=== PATIENT | female | born 1985 | race Caucasian/White ===

== ENCOUNTER 2017-07-12 00:02 | Inpatient (IN) | payer OTHER ==
[~2017-07-12 00:02] MED LIST: Acetaminophen 325 MG Tab PO PRN; Carboprost Tromethamine 250 MCG/1 ML Amp IM PRN; Lactated Ringers 500 ML IV ONE; Lidocaine 1% 30 ML SDV INJECT PRN; Methylergonovine 0.2 MG/1 ML Amp IM PRN; Misoprostol 400 MCG (4 X 100 MCG TAB) RECTAL PRN; Nalbuphine 20 MG/1 ML Amp IM PRN; Nalbuphine 20 MG/1 ML Amp IVPUSH PRN; Ondansetron 4 MG/2 ML SDV IV PRN; Oxytocin/Normal Saline 30 UNIT/500 ML BAG IV SCH; Sodium Chloride 0.9% 10 ML Syringe FLUSH PRN; fentaNYL 100 MCG/2 ML SDV IVPUSH PRN
[2017-07-12] MEDS: Misoprostol 25 MCG (1/4 of 100 MCG) Tab VAG PRN ×2 (01:01→05:12)
[2017-07-12] MEDS: Lactated Ringers 1,000 ML IV SCH ×4 (07:45→14:56)
--- NOTE | 2017-07-12 11:37 | PCM.LDHP ---
L&D History of Present Illness - General Date of Service: 07/12/17 Admit Problem/Dx: Patient Status Order with Admit Dx/Problem 07/12/17 00:00 Patient Status [ADT] Routine Admission Diagnosis/Problem Admission Diagnosis/Problem - History of Present Illness Introduction:: 32-year-old at 39w0d presented for elective induction at midnight. Patient has been feeling well. Baby has been active. No vaginal bleeding or leaking of fluid. No new headaches or vision changes. Patient received 2 doses of cytotec overnight with the last dose given at 515. Patient has felt some cramping but is not yet having painful contractions. has been complicated by gallstones, impaired glucose tolerance ( passed 3 hour GTT) and anemia. 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: , Other (See Below) - Past Surgical History HEENT Surgical History: Reports: Tonsillectomy, Other (See Below) Other HEENT Surgeries/Procedures: wisdom teeth removed Female Surgical History: Reports: D&C, Other (See Below) Other Female Surgeries/Procedures: due to excessive bleeding with periods Social & Family History - Family History Family Medical History: Noncontributory Hematologic: Reports: Other (See Below) (Blood clots (maternal grandfather)) Oncologic: Reports: Breast (Paternal grandmother) Other Family History: Father has sarcoidosis - Tobacco Use Smoking Status *Q: Never Smoker Years of Tobacco use: 13 Packs/Tins Daily: 0.5 Second Hand Smoke Exposure: No - Caffeine Use Caffeine Use: Reports: Coffee, Soda - Recreational Drug Use Recreational Drug Use: No - Sexual History Sexual History: Reports: Sexually Active, Single Partner - Living Situation & Occupation Living situation: Reports: Occupation: Employed H&P Review of Systems - Review of Systems: Review Of Systems: ROS reveals no pertinent complaints other than HPI. L&D Exam - Exam Exam: See Below - Vital Signs Vital Signs: Last Vital Signs Temp 36.7 C 07/12/17 10:03 Pulse 50 L 07/12/17 10:05 Resp 16 07/12/17 10:05 BP 116/68 07/12/17 10:05 Pulse Ox Weight: 107.955 kg - OB Specific Contraction Duration (sec): 40-60 Contraction Frequency (min): 2-2.5 Contraction Intensity: Mild Movement: Active Heart Tones: Present Heart Tones per Min: 135 Heart Rate (FHR) Variability: Moderate (6-25 bmp) Presentation: Vertex - Tovar Score Tovar Score Cervix Position: Midposition Tovar Score Consistency: Soft Tovar Score Effacement: 51-70% Tovar Score Dilation: 1-2 cm Tovar Score 's Station: -1 ,0 Tovar Score Total: 8 - Exam HEENT: Mucosa Moist & [place], Pupils Reactive Lungs: Clear to Auscultation, Normal Respiratory Effort Cardiovascular: Regular Rate, Regular Rhythm. No: Systolic Murmur, Diastolic Murmur Genitourinary: Normal external exam Extremities: No Pedal Edema Skin: Warm, Dry, Intact - Patient Data Lab Results Last 24 hrs: Laboratory Results - last 24 hr 07/12/17 Range/Units 00:25 WBC 11.4 H (5.0-10.0) 10^3/uL RBC 3.94 L (4.2-5.4) 10^6/uL Hgb 11.1 L (12.0-16.0) g/dL Hct 33.9 L (37.0-47.0) % MCV 86.0 (80-100) fL MCH 28.2 (27.0-34.0) pg MCHC 32.7 L (33.0-35.0) g/dL Plt Count 218 (150-450) 10^3/uL Result Diagrams: 07/12/17 00:25 - Problem List (1) care in third trimester SNOMED Code(s): 808698253, 70715875, 811505528, 808412121 ICD Code: Z34.93 - ENCNTR FOR SUPRVSN OF NORMAL PREG, UNSP, THIRD TRIMESTER Status: Acute Current Visit: Yes (2) Rh negative status during in third trimester SNOMED Code(s): 658625431 ICD Code: O09.893 - SUPERVISION OF OTHER HIGH RISK PREGNANCIES, THIRD TRIMESTER; Z67.91 - UNSPECIFIED BLOOD TYPE, RH NEGATIVE Status: Acute Current Visit: Yes (3) Anemia affecting in third trimester SNOMED Code(s): 95939535 ICD Code: O99.013 - ANEMIA COMPLICATING , THIRD TRIMESTER Status: Acute Current Visit: Yes (4) Impaired glucose in , antepartum SNOMED Code(s): 250947212 ICD Code: O99.810 - ABNORMAL GLUCOSE COMPLICATING Status: Acute Current Visit: Yes (5) Abdominal pain affecting SNOMED Code(s): 962864526 ICD Code: O26.899 - OTH RELATED CONDITIONS, UNSPECIFIED TRIMESTER; R10.9 - UNSPECIFIED ABDOMINAL PAIN Status: Acute Current Visit: Yes Problem List Initiated/Reviewed/Updated: Yes Orders Last 24hrs: Active Orders 24 hr Category Date Time Status Patient Status [ADT] Routine ADT 07/12/17 00:00 Active Communication Order [RC] ASDIRECTED Care 07/12/17 00:00 Active Communication Order [RC] ASDIRECTED Care 07/12/17 00:00 Active Communication Order [RC] ASDIRECTED Care 07/12/17 00:00 Active Communication Order [RC] ASDIRECTED Care 07/12/17 00:00 Active Communication Order [RC] ASDIRECTED Care 07/12/17 00:00 Active Communication Order [RC] ASDIRECTED Care 07/12/17 00:00 Active Notify Provider Vital Signs OB [RC] ASDIRECTED Care 07/12/17 00:00 Active Notify Provider [RC] PRN Care 07/12/17 00:00 Active Notify Provider [RC] PRN Care 07/12/17 00:00 Active Notify Provider [RC] PRN Care 07/12/17 00:00 Active Notify Provider [RC] STAT Care 07/12/17 00:00 Active Pump Management, Intrathecal [RC] ASDIRECTED Care 07/12/17 00:00 Active Up ad Adriane [RC] ASDIRECTED Care 07/12/17 00:00 Active Vaginal Exam [RC] PRN Care 07/12/17 00:00 Active Vital Signs [RC] 08,20 Care 07/12/17 00:00 Active Clear Liquid Diet [DIET] Diet 07/12/17 Breakfast Active Acetaminophen [Tylenol] Med 07/12/17 00:00 Active 650 mg PO Q4H PRN Carboprost Tromethamine [Hemabate DS] Med 07/12/17 00:00 Active 250 mcg IM ASDIRECTED PRN Lactated Ringers [Ringers, Lactated] 1,000 ml Med 07/12/17 00:00 Active IV ASDIRECTED Lidocaine 1% [Xylocaine-MPF 1%] Med 07/12/17 00:00 Active 10 ml INJECT ASDIRECTED PRN Methylergonovine [Methergine] Med 07/12/17 00:00 Active 0.2 mg IM ASDIRECTED PRN Misoprostol [Cytotec] Med 07/12/17 00:00 Active 25 mcg VAG Q4H PRN Misoprostol [Cytotec] Med 07/12/17 00:00 Active 800 mcg RECTAL ASDIRECTED PRN Nalbuphine [Nubain] Med 07/12/17 00:00 Active 10 mg IVPUSH Q3H PRN Nalbuphine [Nubain] Med 07/12/17 00:00 Active 20 mg IM Q3H PRN Ondansetron [Zofran] Med 07/12/17 00:00 Active 4 mg IV Q4H PRN Oxytocin/Normal Saline [Pitocin in NS 30 UNIT/500 ML] Med 07/12/17 00:00 Active 30 unit in 500 ml IV TITRATE Sodium Chloride 0.9% [Saline Flush] Med 07/12/17 00:00 Active 10 ml FLUSH ASDIRECTED PRN fentaNYL [Sublimaze] Med 07/12/17 00:00 Active 50 mcg IVPUSH Q1H PRN Saline Lock Insert [OM.PC] Routine Oth 07/12/17 00:00 Ordered Resuscitation Status Routine Resus Stat 07/11/17 22:46 Ordered Medication Orders Acetaminophen (Tylenol) 650 mg PO Q4H PRN PRN Reason: Pain (Mild 1-3) and fever Carboprost Tromethamine (Hemabate Ds) 250 mcg IM ASDIRECTED PRN PRN Reason: HEMORRHAGE Fentanyl (Sublimaze) 50 mcg IVPUSH Q1H PRN PRN Reason: Pain (moderate 4-6) Lactated Ringer's (Ringers, Lactated) 1,000 mls @ 125 mls/hr IV ASDIRECTED MICHAEL Last Admin: 07/12/17 07:45 Dose: 125 mls/hr Oxytocin/Sodium Chloride (Pitocin In Ns 30 Unit/500 Ml) 30 unit in 500 mls @ 2 mls/hr IV TITRATE MICHAEL; 2 MUNITS/MIN PRN Reason: Protocol Last Titration: 07/12/17 10:57 Dose: 4 munits/min, 4 mls/hr Admin: 07/12/17 10:25 Dose: 2 munits/min, 2 mls/hr Lidocaine HCl (Xylocaine-Mpf 1%) 10 ml INJECT ASDIRECTED PRN PRN Reason: Perineal Repair Methylergonovine Maleate (Methergine) 0.2 mg IM ASDIRECTED PRN PRN Reason: Hemorrhage Misoprostol (Cytotec) 800 mcg RECTAL ASDIRECTED PRN PRN Reason: Hemorrhage Misoprostol (Cytotec) 25 mcg VAG Q4H PRN PRN Reason: cervical ripening Last Admin: 07/12/17 05:12 Dose: 25 mcg Admin: 07/12/17 01:01 Dose: 25 mcg Nalbuphine HCl (Nubain) 10 mg IVPUSH Q3H PRN PRN Reason: Pain (moderate 4-6) Nalbuphine HCl (Nubain) 20 mg IM Q3H PRN PRN Reason: Abdominal Pain Ondansetron HCl (Zofran) 4 mg IV Q4H PRN PRN Reason: Nausea/Vomiting Sodium Chloride (Saline Flush) 10 ml FLUSH ASDIRECTED PRN PRN Reason: Keep Vein Open Assessment/Plan Comment:: 32-year-old at 39w0d for elective induction 1. Continue routine intrapartum cares 2. Will start pitocin per protocol this morning. AROM when able. 3. Patient does desire intrathecal later in labor 4. Expectant management. Anticipate Camryn Ibarra MD
[2017-07-12] MEDS ORDERED: EPINEPHrine 1 MG/ML SDV ONE (14:23)
[2017-07-12] MEDS ORDERED: fentaNYL 100 MCG/2 ML SDV ONE (14:23)
[2017-07-12] MEDS ORDERED: ePHEDrine 50 MG/ML SDV ONE (14:39)
[2017-07-12] MEDS ORDERED: Naloxone 2 MG/2 ML Syringe ONE (15:14)
--- NOTE | 2017-07-12 16:32 | PCM.PRNOTE ---
- Free Text/Narrative Note: Requested to provide analgesia to full term patient in severe pain. Upon entering the room, patient is standing, complaining of severe abdominal pain and discomfort. Pt was given IV fentanyl under 1 hour ago. Pt is having severe pain and seems to be transitioning fast. Procedure was quickly discussed with patient, who has had an IT before, including adverse outcomes and expectations. Pt consented to analgesia, SAB/IT. Pt placed into a sitting position. Landmarks for SAB/IT were identified and marked. Back was prepped with betadine x3. A sterile, transparent, fenestrated drape was applied. Excess betadine was removed. Using 3 mL of a 1% lidocaine solution, a skin wheel was placed at the L3/L4 interspace. A 24 ga (4 inch) Pencan spinal needle was inserted until positive for CSF. Negative for heme or paresthesias. Injected fentanyl 20 mcg, sufentanil 10 mcg, and 9.75 mg of a 0.75% bupivacaine solution with an epi wash. Pt was placed left lateral position for approximately 20 minutes. During this time, pt began having hypotension with SBP in the 80s and 70s. Pt was given ephedrine, fluid bolus and oxygen via face mask. tracing began to change with decels and increase in HR, baseline up to [address] Ibarra was notified and came to the room. Pt was given a total of 30mg Ephedrine during this time. At no time did pt complain of N/V. Only complaint was itching. At 1515, pt was given first dose of Naloxone 0.5 mg IVP. Along with fluid and oxygen, FHT became more consistent and decels more manageable. At 1550, pt was given second dose of Naloxone 0.5 mg IVP. By 1600 , decels continue with BP normal and fluid at KVO. Around 1615, Dr. Ibarra was called to help deliver baby. Will continue to monitor until baby is delivered and both are healthy.
[2017-07-12] MEDS ORDERED: Oxytocin 10 Units/1 ML SDV IM PRN (18:50)
[2017-07-12] MEDS ORDERED: Ibuprofen 800 MG Tab PO PRN (18:50)
[2017-07-12] MEDS ORDERED: Docusate Sodium 100 MG Cap PO PRN (18:50)
[2017-07-12] MEDS ORDERED: Benzocaine/Menthol 20%-0.5% Spray 56 GM Canister TOP PRN (18:50)
[2017-07-12] MEDS ORDERED: Simethicone 80 MG Tab.Chew PO PRN (18:50)
--- NOTE | 2017-07-12 19:09 | PCM.DEL ---
L & D Note - General Info Date of Service: 07/12/17 Mother's Due Date: 07/19/17 - Delivery Note Labor: Augmented by Oxytocin Cervical Ripening Method: Misoprostil Delivery Outcome: Livebirth Infant Delivery Method: Spontaneous Vaginal Delivery-Single Delivery Mode: Vacuum Extraction Presentation: Vertex Nuchal Cord: None Anesthesia Type: Local, Intrathecal Anesthetic: Lidocaine (Xylocaine) 1% Plain Local Anesthetic Volume: Other (10) Amniotic Fluid Description: Clear Episiotomy Type: None Laceration: 2nd Degree, Perineal Suture type: Vicryl Suture size: 3-0 Placenta: Intact, Spontaneous Cord: 3 Vessels Estimated Blood Loss: 150 Resuscitation Needed: No [place]: Bulb Syringe, Stimulated, Warmed Provider: Camryn Ibarra Score 1 min: 8 Score 5 min: 9 Delivery Comments (Free Text/Narrative):: 32-year-old, now , presented to L&D for elective induction at 39w0d. She received 2 doses of Cytotec for induction. Around 1000 today, pitocin was started for augmentation. She SROM'd for clear fluid around 1355. Patient received her intrathecal and had significant hypotension with recurrent decelerations. Patient received 4 doses of ephedrine and 2 doses of Narcan. Pitocin was discontinued. Patient continued to progress and reached complete dilation around 1732. Patient started pushing. She had good progression. Due to deceleration and maternal fatigue, a vacuum was applied. The vacuum was used for 2 contractions with good progression. Baby was delivered without difficulty and placed on mother's chest. Apgars were 8 and 9 at 1 and 5 minutes respectively. Cord was clamped x2 and cut by father. Cord blood was collected. Second degree perineal laceration was repaired in the usual fashion. Placenta was delivered about 18 minutes after delivery of the baby. It was noted to be intact. Bleeding was noted to be appropriate. Induction Criteria - Tovar Score Tovar Score Dilation: 1-2 cm Tovar Score Effacement: 60-70% Tovar Score 's Station: -2 Tovar Score Consistency: Soft Tovar Score Cervix Position: Posterior Tovar Score Total: 6 Tovar Score Presenting Part: Reports: Cephalic - Induction Gestational Age >/= 39 wks: Yes Estimated Pelvis: Reports: Adequate Reassuring Monitoring Strip: Yes Absence of Tachy Systole: Yes - Augmentation Estimated Pelvis: Reports: Adequate Weight Estimated:: Reports: AGA Reassuring Monitoring Strip: Yes Absence of Tachy Systole: Yes Vacuum Extractor Progress Note - Alternative Labor Strategies Considered Alternative Labor Strategies Considered:: Reports: Yes Strategies Considered:: Reports: Contraction Intensity Adequate, Position Changes Used to Facilitate Rotation & Descent, Empty Bladder Indications Considered:: Reports: Yes Indications:: Reports: Shortening of 2nd Stage for Maternal Benefit - Patient Prepared Patient Prepared:: Reports: Yes Informed Consent:: Reports: Verbal Risks: Reports: Yes Risks Include:: Reports: Laceration, Maternal Injury Anesthesia/Analgesia Adequate:: Reports: Yes - Probability of Success High Probability of Success:: Reports: Yes Weight Estimated:: Reports: AGA Patient Diabetic:: Reports: No Pelvis Adequate:: Reports: Yes - Application Time Type of Vacuum Used:: Reports: Cup: Mushroom type Vacuum Extraction: Successful - Exit Strategy Exit strategy available:: Reports: Yes - Patient Data Vitals - Most Recent: Last Vital Signs Temp 37.3 C 07/12/17 14:03 Pulse 75 07/12/17 14:49 Resp 16 07/12/17 14:49 BP 68/41 L 07/12/17 14:49 Pulse Ox Weight - Most Recent: 107.955 kg I&O - Last 24 Hours: Intake & Output 07/12/17 07/12/17 07/12/17 06:59 14:59 22:59 Intake Total 1000 Balance 1000 Lab Results Last 24 Hours: Laboratory Results - last 24 hr 07/12/17 Range/Units 00:25 WBC 11.4 H (5.0-10.0) 10^3/uL RBC 3.94 L (4.2-5.4) 10^6/uL Hgb 11.1 L (12.0-16.0) g/dL Hct 33.9 L (37.0-47.0) % MCV 86.0 (80-100) fL MCH 28.2 (27.0-34.0) pg MCHC 32.7 L (33.0-35.0) g/dL Plt Count 218 (150-450) 10^3/uL Med Orders - Current: Current Medications Acetaminophen (Tylenol) 650 mg PO Q4H PRN PRN Reason: Pain (Mild 1-3) and fever Benzocaine/Menthol (Dermoplast Pain Relief [place]) 0 gm TOP Q4H PRN PRN Reason: Perineal comfort measures Carboprost Tromethamine (Hemabate Ds) 250 mcg IM ASDIRECTED PRN PRN Reason: HEMORRHAGE Docusate Sodium (Colace) 100 mg PO BID PRN PRN Reason: Constipation Oxytocin/Sodium Chloride (Pitocin In Ns 30 Unit/500 Ml) 30 unit in 500 mls @ 2 mls/hr IV TITRATE MICHAEL; 2 MUNITS/MIN PRN Reason: Protocol Last Titration: 07/12/17 14:01 Dose: 9 munits/min, 9 mls/hr Ibuprofen (Motrin) 800 mg PO Q8H PRN PRN Reason: Mild Pain or Fever Methylergonovine Maleate (Methergine) 0.2 mg IM ASDIRECTED PRN PRN Reason: Hemorrhage Misoprostol (Cytotec) 800 mcg RECTAL ASDIRECTED PRN PRN Reason: Hemorrhage Misoprostol (Cytotec) 25 mcg VAG Q4H PRN PRN Reason: cervical ripening Last Admin: 07/12/17 05:12 Dose: 25 mcg Ondansetron HCl (Zofran) 4 mg IV Q4H PRN PRN Reason: Nausea/Vomiting Last Admin: 07/12/17 14:12 Dose: 4 mg Oxytocin (Pitocin) 10 unit IM ONETIME PRN PRN Reason: Bleeding Simethicone (Simethicone) 80 mg PO Q4H PRN PRN Reason: Gas Sodium Chloride (Saline Flush) 10 ml FLUSH ASDIRECTED PRN PRN Reason: Keep Vein Open Discontinued Medications Ephedrine Sulfate (Ephedrine Sulfate) Confirm Administered Dose 50 mg .ROUTE .STK-MED ONE Stop: 07/12/17 14:40 Last Admin: 07/12/17 18:25 Dose: Not Given Epinephrine HCl (Adrenalin) Confirm Administered Dose 1 mg .ROUTE .STK-MED ONE Stop: 07/12/17 14:24 Last Admin: 07/12/17 18:24 Dose: Not Given Fentanyl (Sublimaze) 50 mcg IVPUSH Q1H PRN PRN Reason: Pain (moderate 4-6) Last Admin: 07/12/17 13:47 Dose: 50 mcg Fentanyl (Sublimaze) Confirm Administered Dose 100 mcg .ROUTE .STK-MED ONE Stop: 07/12/17 14:24 Last Admin: 07/12/17 18:23 Dose: Not Given Lactated Ringer's (Ringers, Lactated) 500 mls @ 999 mls/hr IV .BOLUS ONE Stop: 07/12/17 00:30 Last Admin: 07/12/17 18:24 Dose: Not Given Lactated Ringer's (Ringers, Lactated) 1,000 mls @ 125 mls/hr IV ASDIRECTED MICHAEL Last Admin: 07/12/17 14:56 Dose: 125 mls/hr Lidocaine HCl (Xylocaine-Mpf 1%) 10 ml INJECT ASDIRECTED PRN PRN Reason: Perineal Repair Last Admin: 07/12/17 18:16 Dose: 10 ml Nalbuphine HCl (Nubain) 10 mg IVPUSH Q3H PRN PRN Reason: Pain (moderate 4-6) Nalbuphine HCl (Nubain) 20 mg IM Q3H PRN PRN Reason: Abdominal Pain Naloxone HCl (Narcan) Confirm Administered Dose 2 mg .ROUTE .STK-MED ONE Stop: 07/12/17 15:15 Sufentanil Citrate (Sufenta) Confirm Administered Dose 50 mcg .ROUTE .STK-MED ONE Stop: 07/12/17 14:24 Last Admin: 07/12/17 18:24 Dose: Not Given - Problem List & Annotations (1) care in third trimester SNOMED Code(s): 909412545, 83555346, 622523336, 051938471 Code(s): Z34.93 - ENCNTR FOR SUPRVSN OF NORMAL PREG, UNSP, THIRD TRIMESTER Status: Acute Current Visit: Yes (2) Rh negative status during in third trimester SNOMED Code(s): 115211395 Code(s): O09.893 - SUPERVISION OF OTHER HIGH RISK PREGNANCIES, THIRD TRIMESTER; Z67.91 - UNSPECIFIED BLOOD TYPE, RH NEGATIVE Status: Acute Current Visit: Yes (3) Anemia affecting in third trimester SNOMED Code(s): 30294077 Code(s): O99.013 - ANEMIA COMPLICATING , THIRD TRIMESTER Status: Acute Current Visit: Yes (4) Impaired glucose in , antepartum SNOMED Code(s): 200733137 Code(s): O99.810 - ABNORMAL GLUCOSE COMPLICATING Status: Acute Current Visit: Yes (5) Abdominal pain affecting SNOMED Code(s): 271924257 Code(s): O26.899 - OTH RELATED CONDITIONS, UNSPECIFIED TRIMESTER; R10.9 - UNSPECIFIED ABDOMINAL PAIN Status: Acute Current Visit: Yes (6) Status post vacuum-assisted vaginal delivery SNOMED Code(s): 246870867 Code(s): Z87.42 - PERSONAL HISTORY OF OTH DISEASES OF THE FEMALE GENITAL TRACT Status: Acute Current Visit: Yes (7) Perineal laceration during delivery, delivered SNOMED Code(s): 133944679 Code(s): O70.9 - PERINEAL LACERATION DURING DELIVERY, UNSPECIFIED Status: Acute Current Visit: Yes - Problem List Review Problem List Initiated/Reviewed/Updated: Yes - My Orders Last 24 Hours: My Active Orders 07/11/17 22:46 Resuscitation Status Routine 07/12/17 00:00 Patient Status [ADT] Routine Communication Order [RC] ASDIRECTED Communication Order [RC] ASDIRECTED Communication Order [RC] ASDIRECTED Communication Order [RC] ASDIRECTED Communication Order [RC] ASDIRECTED Notify Provider Vital Signs OB [RC] ASDIRECTED Notify Provider [RC] PRN Notify Provider [RC] PRN Notify Provider [RC] STAT Up ad Adriane [RC] ASDIRECTED Vaginal Exam [RC] PRN Acetaminophen [Tylenol] 650 mg PO Q4H PRN Carboprost Tromethamine [Hemabate DS] 250 mcg IM ASDIRECTED PRN Methylergonovine [Methergine] 0.2 mg IM ASDIRECTED PRN Misoprostol [Cytotec] 25 mcg VAG Q4H PRN Misoprostol [Cytotec] 800 mcg RECTAL ASDIRECTED PRN Ondansetron [Zofran] 4 mg IV Q4H PRN Oxytocin/Normal Saline [Pitocin in NS 30 UNIT/500 ML] 30 unit in 500 ml IV TITRATE Sodium Chloride 0.9% [Saline Flush] 10 ml FLUSH ASDIRECTED PRN Saline Lock Insert [OM.PC] Routine 07/12/17 18:50 Vital Signs [RC] PFP RHIG WORKUP, [BBK] Routine Benzocaine/Menthol [Dermoplast Pain Relief [place]] See Dose Instructions TOP Q4H PRN Docusate Sodium [Colace] 100 mg PO BID PRN Ibuprofen [Motrin] 800 mg PO Q8H PRN Oxytocin [Pitocin] 10 unit IM ONETIME PRN Simethicone 80 mg PO Q4H PRN Assess Lochia [WOMSER] Per Unit Routine Assess Uterine Involution [WOMSER] Per Unit Routine Breast Pump [WOMSER] Per Unit Routine Ice Therapy [OM.PC] Per Unit Routine Perineal Care [OM.PC] Per Unit Routine Saline Lock Insert [OM.PC] Urgent Sitz Bath [OM.PC] Per Unit Routine 07/12/17 Dinner Regular Diet [DIET] - Assessment Assessment:: 22-year-old now status post vacuum assisted vaginal delivery - Plan Plan:: 1. Initiate routine orders 2. Patient will need Rhogam 3. Plans to breastfeed 4. Anticipate discharge 07/14/17 Camryn Ibarra MD
--- NOTE | 2017-07-13 13:48 | PCM.DCSUM1 ---
Discharge Summary - Hospital Course Free Text/Narrative:: 32-year-old status post vacuum-assisted vaginal delivery at 39w0d - Discharge Data Discharge Date: 07/13/17 Discharge Disposition: Home, Self-Care 01 Condition: Good - Discharge Diagnosis/Problem(s) (1) care in third trimester SNOMED Code(s): 254271189, 08940248, 882423764, 692011088 ICD Code: Z34.93 - ENCNTR FOR SUPRVSN OF NORMAL PREG, UNSP, THIRD TRIMESTER Status: Acute Current Visit: Yes (2) Rh negative status during in third trimester SNOMED Code(s): 116503872 ICD Code: O09.893 - SUPERVISION OF OTHER HIGH RISK PREGNANCIES, THIRD TRIMESTER; Z67.91 - UNSPECIFIED BLOOD TYPE, RH NEGATIVE Status: Acute Current Visit: Yes (3) Anemia affecting in third trimester SNOMED Code(s): 48765990 ICD Code: O99.013 - ANEMIA COMPLICATING , THIRD TRIMESTER Status: Acute Current Visit: Yes (4) Impaired glucose in , antepartum SNOMED Code(s): 596689114 ICD Code: O99.810 - ABNORMAL GLUCOSE COMPLICATING Status: Acute Current Visit: Yes (5) Abdominal pain affecting SNOMED Code(s): 451607747 ICD Code: O26.899 - OTH RELATED CONDITIONS, UNSPECIFIED TRIMESTER; R10.9 - UNSPECIFIED ABDOMINAL PAIN Status: Acute Current Visit: Yes (6) Status post vacuum-assisted vaginal delivery SNOMED Code(s): 550567308 ICD Code: Z87.42 - PERSONAL HISTORY OF OTH DISEASES OF THE FEMALE GENITAL TRACT Status: Acute Current Visit: Yes (7) Perineal laceration during delivery, delivered SNOMED Code(s): 877111737 ICD Code: O70.9 - PERINEAL LACERATION DURING DELIVERY, UNSPECIFIED Status: Acute Current Visit: Yes - Patient Summary/Data Operative Procedure(s) Performed: Vacuum-assisted vaginal delivery Complications: None Consults: None Labs Pending at D/C: None Recommended Follow-up Testing/Procedures: None Planned Operative Procedure(s) after DC: None Hospital Course: Unremarkable. (Please see subjective section) - Patient Instructions Diet: Usual Diet as Tolerated Activity: As Tolerated, No Lifting Over 20 Pounds Driving: May Drive Today Showering/Bathing: May Shower Notify Provider of: Fever, Increased Pain, Swelling and Redness, Nausea and/or Vomiting - Discharge Plan Home Medications: Home Meds PNV95/Ferrous Fumarate/FA [ Tablet] 1 tab PO DAILY 07/12/17 [History] Pantoprazole Sodium [Protonix] 40 mg PO DAILY 07/12/17 [History] diphenhydrAMINE [Benadryl] 50 mg PO BEDTIME PRN 07/12/17 [History] Acetaminophen [Tylenol] 650 mg PO Q4H PRN tablet 07/13/17 [Rx] Docusate Sodium [Colace] 100 mg PO BID PRN cap 07/13/17 [Rx] Ibuprofen [IJD: Ibuprofen] 800 mg PO Q8H PRN tablet 07/13/17 [Rx] Referrals: Camryn Ibarra MD [Primary Care Provider] - (6-8 weeks for routine visit) - Discharge Summary/Plan Comment DC Time >30 min.: No Discharge Summary/Plan Comment: Discharge home today. Follow-up in 6-8 weeks for routine visit. Reasons to return sooner or present to the emergency department were reviewed with the patient, and all questions were answered. Camryn Ibarra MD - General Info Date of Service: 07/13/17 Subjective Update: 32-year-old now PPD#1 status post vacuum-assisted vaginal delivery and secondary perineal laceration repair. Patient is doing well. She is ambulating without difficulty. Bleeding has slowed down. She is tolerating a general diet. She is urinating and has passed gas. She has pump once but is unsure how committed she is to pumping and bottle feeding. No concerns per patient or per nursing - Patient Data Vitals - Most Recent: Last Vital Signs Temp 36.9 C 07/12/17 20:15 Pulse 64 07/12/17 20:15 Resp 16 07/12/17 20:15 BP 112/45 L 07/12/17 20:15 Pulse Ox 97 07/12/17 16:01 Weight - Most Recent: 107.955 kg I&O - Last 24 hours: Intake & Output 07/12/17 07/13/17 07/13/17 22:59 06:59 14:59 Intake Total 520 Output Total 250 Balance 270 Med Orders - Current: Current Medications Acetaminophen (Tylenol) 650 mg PO Q4H PRN PRN Reason: Pain (Mild 1-3) and fever Benzocaine/Menthol (Dermoplast Pain Relief [place]) 0 gm TOP Q4H PRN PRN Reason: Perineal comfort measures Last Admin: 07/12/17 21:00 Dose: 1 spray Carboprost Tromethamine (Hemabate Ds) 250 mcg IM ASDIRECTED PRN PRN Reason: HEMORRHAGE Docusate Sodium (Colace) 100 mg PO BID PRN PRN Reason: Constipation Oxytocin/Sodium Chloride (Pitocin In Ns 30 Unit/500 Ml) 30 unit in 500 mls @ 2 mls/hr IV TITRATE MICHAEL; 2 MUNITS/MIN PRN Reason: Protocol Last Titration: 07/12/17 20:20 Dose: Infused Ibuprofen (Motrin) 800 mg PO Q8H PRN PRN Reason: Mild Pain or Fever Methylergonovine Maleate (Methergine) 0.2 mg IM ASDIRECTED PRN PRN Reason: Hemorrhage Misoprostol (Cytotec) 800 mcg RECTAL ASDIRECTED PRN PRN Reason: Hemorrhage Misoprostol (Cytotec) 25 mcg VAG Q4H PRN PRN Reason: cervical ripening Last Admin: 07/12/17 05:12 Dose: 25 mcg Ondansetron HCl (Zofran) 4 mg IV Q4H PRN PRN Reason: Nausea/Vomiting Last Admin: 07/12/17 14:12 Dose: 4 mg Oxytocin (Pitocin) 10 unit IM ONETIME PRN PRN Reason: Bleeding Simethicone (Simethicone) 80 mg PO Q4H PRN PRN Reason: Gas Sodium Chloride (Saline Flush) 10 ml FLUSH ASDIRECTED PRN PRN Reason: Keep Vein Open Discontinued Medications Ephedrine Sulfate (Ephedrine Sulfate) Confirm Administered Dose 50 mg .ROUTE .STK-MED ONE Stop: 07/12/17 14:40 Last Admin: 07/12/17 18:25 Dose: Not Given Epinephrine HCl (Adrenalin) Confirm Administered Dose 1 mg .ROUTE .STK-MED ONE Stop: 07/12/17 14:24 Last Admin: 07/12/17 18:24 Dose: Not Given Fentanyl (Sublimaze) 50 mcg IVPUSH Q1H PRN PRN Reason: Pain (moderate 4-6) Last Admin: 07/12/17 13:47 Dose: 50 mcg Fentanyl (Sublimaze) Confirm Administered Dose 100 mcg .ROUTE .STK-MED ONE Stop: 07/12/17 14:24 Last Admin: 07/12/17 18:23 Dose: Not Given Lactated Ringer's (Ringers, Lactated) 500 mls @ 999 mls/hr IV .BOLUS ONE Stop: 07/12/17 00:30 Last Admin: 07/12/17 18:24 Dose: Not Given Lactated Ringer's (Ringers, Lactated) 1,000 mls @ 125 mls/hr IV ASDIRECTED MICHAEL Last Admin: 07/12/17 14:56 Dose: 125 mls/hr Lidocaine HCl (Xylocaine-Mpf 1%) 10 ml INJECT ASDIRECTED PRN PRN Reason: Perineal Repair Last Admin: 07/12/17 18:16 Dose: 10 ml Nalbuphine HCl (Nubain) 10 mg IVPUSH Q3H PRN PRN Reason: Pain (moderate 4-6) Nalbuphine HCl (Nubain) 20 mg IM Q3H PRN PRN Reason: Abdominal Pain Naloxone HCl (Narcan) Confirm Administered Dose 2 mg .ROUTE .STK-MED ONE Stop: 07/12/17 15:15 Last Admin: 07/12/17 19:00 Dose: Not Given Sufentanil Citrate (Sufenta) Confirm Administered Dose 50 mcg .ROUTE .STK-MED ONE Stop: 07/12/17 14:24 Last Admin: 07/12/17 18:24 Dose: Not Given - Exam General: Reports: Alert, Oriented HEENT: Reports: Pupils Equal, Pupils Reactive Lungs: Reports: Clear to Auscultation, Normal Respiratory Effort Cardiovascular: Reports: Regular Rate, Regular Rhythm. Denies: Murmurs Extremities: Pedal Edema (Trace bilaterally) Skin: Reports: Warm, Dry, Intact *Q Meaningful Use (DIS) - VTE *Q VTE Criteria *Q: - Stroke *Q Stroke Criteria *Q: - AMI *Q AMI Criteria *Q:
[2017-07-13] MEDS ORDERED: fentaNYL 100 MCG/2 ML SDV ITHECAL ONE (14:29)
[2017-07-13] MEDS ORDERED: EPINEPHrine 1 MG/ML SDV ONE (14:29)
[2017-07-13 18:36] VITALS: BP 91/31
[2017-07-13] MEDS ORDERED: Naloxone 2 MG/2 ML Syringe IV ONE (19:59)
[2017-07-13] MEDS ORDERED: ePHEDrine 50 MG/ML SDV IV ONE (19:59)
== END 2017-07-13 20:00 | disposition home or self-care (01) | DRG 775 ==
LOC: DL.OBCHECK 00:02 → DL.OB 00:04 → OBSVTOIN 18:12 → DL.OB 18:12
PROVIDERS: ADMIT Family Medicine; ATTEND Family Medicine
PROC: 10D07Z6 Extraction of Products of Conception, Vacuum, Via Natural or Artificial Opening (ICD-10-PCS; principal; 2017-07-12)
PROC: 3E0P7VZ Introduction of Hormone into Female Reproductive, Via Natural or Artificial Opening (ICD-10-PCS; 2017-07-12)
PROC: 00HU33Z Insertion of Infusion Device into Spinal Canal, Percutaneous Approach (ICD-10-PCS; 2017-07-12)
PROC: 3E0R3BZ Introduction of Anesthetic Agent into Spinal Canal, Percutaneous Approach (ICD-10-PCS; 2017-07-12)
DX: O99.02 Anemia complicating childbirth (principal); O70.1 Second degree perineal laceration during delivery; Z3A.39 39 weeks gestation of pregnancy; Z37.0 Single live birth; Z88.0 Allergy status to penicillin
CPT/HCPCS: 36415; 59025; 59300; 59409; 85027; A9270-GY; J0171; J2310; J2405; J2590; J3010; J7120

== ENCOUNTER 2017-09-23 19:03 | Emergency (ER) | payer OTHER ==
[2017-09-23 19:24] VITALS: BP 140/60
[2017-09-23] MEDS ORDERED: Ketorolac 30 MG/ML SDV IM ONE (19:35)
[2017-09-23] MEDS ORDERED: Ondansetron 4 MG Tab.DIS PO ONE (19:35)
[2017-09-23] MEDS ORDERED: Famotidine 20 MG Tab PO ONE (19:36)
[2017-09-23] MEDS ORDERED: Ondansetron 4 MG/2 ML SDV IV ONE (19:45)
[2017-09-23] MEDS ORDERED: Ketorolac 30 MG/ML SDV IVPUSH ONE (19:45)
[2017-09-23 19:54] LABS: CHLORIDE,CL 108 mmol/L (101-111); SODIUM,NA 141 mmol/L (135-145)
--- NOTE | 2017-09-24 03:15 | ER ---
SUBJECTIVE: The patient is a 32-year-old, G2, P2 who recently was and during her had cholelithiasis, diagnosed with an ultrasound and was told to have her gallbladder out soon after , however she felt improved lately. She decided not to pursue this. However, she has now had an attack today with right upper and midepigastric abdominal pain. No trauma. No fevers or chills, some nausea, vomiting. No bowel or bladder changes, melena, or hematochezia. No further . No other issues. No fever or recent illness. PAST MEDICAL HISTORY: 1. Significant for previous pregnancies. 2. She has known cholelithiasis via US. 3. GERD. CURRENT MEDICATIONS: Her home medications include: 1. vitamins 1 p.o. daily. 2. Protonix 40 mg p.o. daily. 3. Benadryl p.r.n. 4. Tylenol p.r.n. 5. Colace p.r.n. 6. Ibuprofen p.r.n. ALLERGIES: She is allergic to penicillins, does not recall why. SOCIAL HISTORY: She is . She is here with her . She does use tobacco. No alcohol. No drugs. REVIEW OF SYSTEMS: No fever, chills, chest pain, or shortness of breath. No back or flank pain. No bowel or bladder changes. She does have some nausea, vomiting. No melena or hematochezia. She is here for right upper and midepigastric abdominal pain with suspected gallbladder flare up. Please see HPI. OBJECTIVE: Vital Signs: Stable. She is afebrile. Please see documentation. General: Normocephalic and atraumatic. A and O x3. GCS of 15. Pleasant, cooperative, talkative. No distress, nontoxic. Appears fairly comfortable. HEENT: No jaundice. Mucous membranes moist. Neck: Unremarkable. Lungs: No respiratory distress. Normal pulses. Abdomen: She has right upper quadrant and mid midepigastric abdominal tenderness. She does have a fairly large abdomen. It is soft. No guarding. or rebound; it is atraumatic. Back: No CVAT. Skin: Clear. LAB/STUDIES: Her white count is mildly elevated at 10.7. She has no anemia. Platelets are normal. Differential unremarkable. Her CMP is unremarkable with exception of amylase at 103. Otherwise, her LFTs are normal. Her total bili is also normal. EMERGENCY ROOM COURSE: She was given Pepcid 20 mg IV. She was given 30 mg IV Toradol and 4 mg of Zofran IV. Her symptoms resolved as she felt markedly better. She does not need any further imaging as she has already had ultrasound showing cholelithiasis and just needs to get a time to get it removed. She did tolerate all of her medicines and treatment. She markedly improved and remained stable. ASSESSMENT: 1. Cholelithiasis already known via US. 2. Right upper and midepigastric abdominal pain secondary to flare-up of #1. PLAN: Discharged to home in stable and improved condition. Recommend follow up with PCP early this next week to get referral to a surgeon to contemplate getting a cholecystectomy. In the meantime, consume extremely bland diet. Keep very well hydrated. Avoid spicy foods, fatty foods, greasy food, and any caffeine. [facility] [place][id number] [place]
== END 2017-09-23 20:25 | disposition home or self-care (01) ==
LOC: DL.ED 19:03
DX: K80.20 Calculus of gallbladder without cholecystitis without obstruction (principal); Z88.0 Allergy status to penicillin
CPT/HCPCS: 36415; 80053; 82150; 85025; 96374; 96375; 99284; J1885; J2405; J3490